=== PATIENT | female | born 1995 | race Caucasian/White ===

== ENCOUNTER 2024-12-26 06:10 | Day surgery (SDC) | payer OTHER ==
[2024-12-25 13:53] VITALS: BMI 23.3
[2024-12-26] MEDS ORDERED: MIDAZOLAM HCL 2 MG/2 ML SINGLE DOSE VIAL ONE ×2 (07:13→07:16)
[2024-12-26] MEDS ORDERED: ACETAMINOPHEN INJECTION 100 ML ONE (07:14)
[2024-12-26] MEDS ORDERED: ONDANSETRON 4 MG/2 ML VIAL ONE (07:15)
[2024-12-26] MEDS ORDERED: LIDOCAINE HCL 1%, 10 MG/ML (20ML VIAL) ONE (07:17)
[2024-12-26] MEDS ORDERED: BUPIVACAINE HCL/PF 0.5% (5MG/ML) 10 ML VIAL ONE (07:17)
[2024-12-26 11:14] VITALS: BP 103/58; PULSE 62; RESP 16; TEMP 97.5
== END 2024-12-26 10:20 | disposition home or self-care (01) ==
LOC: FASU 06:10
PROVIDERS: ATTEND Surgery
PROC: 07BH0ZX Excision of Right Inguinal Lymphatic, Open Approach, Diagnostic (ICD-10-PCS; principal; 2024-12-26 07:51)
DX: R59.0 Localized enlarged lymph nodes (principal)
CPT/HCPCS: 81025; 88305-TC; 94760